=== PATIENT | female | born 1985 | race Caucasian/White ===

== ENCOUNTER 2018-12-01 01:12 | Emergency (ER) | payer OTHER ==
--- NOTE | ~2018-12-01 | EKG ---
[place], [place] ELECTROCARDIOGRAM REPORT NAME: VERONICA HENDRICKS UNIT #: [id number] ROOM: DOCTOR: EPIPHANY DRAFT REPORT BIRTHDATE: [birth year] [facility] Test Date: 2018-12-01 Test Time: 01:15:26 Pat Name: VERONICA HENDRICKS Department: ER Room: 4 Gender: F Extractor Filler: Radha Dowling : 1985 Requested By: JANNETH CUEVAS Order Number: [id number] Reading MD: Leroy Amador MD Measurements Intervals [place] Rate: 111 P: 37 IN: 150 QRS: 46 QRSD: 92 T: 6 QT: 306 QTc: 416 Interpretive Statements Sinus tachycardia Probable left atrial enlargement Baseline wander in lead(s) V6 Electronically Signed On 12-01-2018 18:17:59 PST by Leroy Amador MD CM:EKGRPT:ELECTROCARDIOGRAM REPORT [id number] JANNETH PEACOCK DRAFT REPORT JANNETH CUEVAS DO
--- NOTE | ~2018-12-01 | EKG ---
[place], [place] ELECTROCARDIOGRAM REPORT NAME: VERONICA HENDRICKS UNIT #: [id number] ROOM: DOCTOR: EPIPHANY DRAFT REPORT BIRTHDATE: [birth year] [facility] Test Date: 2018-12-01 Test Time: 04:08:58 Pat Name: VERONICA HENDRICKS Department: ED Room: Gender: F Assembler Trim: Radha Dowling : 1985 Requested By: JANNETH CUEVAS Order Number: [id number] Reading MD: Leroy Amador MD Measurements Intervals [place] Rate: 70 P: 21 [place]: 134 QRS: 57 QRSD: 85 T: 34 QT: 376 QTc: 406 Interpretive Statements Sinus rhythm Atrial premature complex Compared to earlier ECG this date PAC is now present Electronically Signed On 12-01-2018 18:19:20 PST by Leroy Amador MD CM:EKGRPT:ELECTROCARDIOGRAM REPORT [id number] JANNETH PEACOCK DRAFT REPORT JANNETH CUEVAS DO
[~2018-12-01 01:12] MED LIST: MACROBID100 M1 PO; PHENERGAN25 M1 PO
[2018-12-01 01:29] LABS: BASO # 0.1 10*3/uL (0.0-0.1); BASO % 0.6 % (0.0-1.0); EOS # 0.1 10*3/uL (0.0-0.4); EOS % 0.8 % (1.0-4.0); HEMATOCRIT 36.6 % (37.0-47.0); HEMOGLOBIN 12.3 g/dl (12.0-16.0); LYMPH # 3.2 10*3/uL (1.3-4.4); LYMPH % 35.3 % (27.0-41.0); MEAN CELL VOLUME 89.7 fl (81.0-99.0); MEAN CORPUSCULAR HGB 30.1 pg (27.0-31.0); MEAN CORPUSCULAR HGB CONC 33.6 g/dl (33.0-37.0); MEAN PLATELET VOLUME 10.6 fl (9.6-12.3); MONO # 0.5 10*3/uL (0.1-1.0); MONO % 5.9 % (3.0-9.0); NEUT # 5.2 10*3/uL (2.3-7.9); NEUT % 57.2 % (47.0-73.0); PLATELET COUNT AUTOMATED 262 10*3/uL (130-400); RED BLOOD COUNT 4.08 10*6/uL (4.10-5.10); RED CELL DISTRI WIDTH 12.1 % (0-14.5)
[2018-12-01 01:40] LABS: ACT PARTIAL THROMBO TIME 23.1 SECONDS (20.8-31.5)
[2018-12-01 01:47] LABS: ALBUMIN 3.4 gm/dl (3.1-4.5); ALKALINE PHOSPHATASE 66 U/L (45-117); BUN 16 mg/dl (7-24); CHLORIDE 107 mmol/L (98-107); CREATININE 0.69 mg/dL (0.55-1.02); SGOT/AST 9 IU/L (3-35); SGPT/ALT 26 U/L (12-78); SODIUM 140 mmol/L (136-145); TOTAL PROTEIN 6.9 gm/dL (6.4-8.2); TROPONIN I < 0.015 ng/ml (<0.045)
== END 2018-12-01 04:45 | disposition home or self-care (01) ==
LOC: ED 01:12
PROVIDERS: Emergency Medicine
DX: R07.89 Other chest pain (principal); F41.9 Anxiety disorder, unspecified; Z87.891 Personal history of nicotine dependence; Z79.2 Long term (current) use of antibiotics

== ENCOUNTER 2020-01-14 21:43 | Emergency (ER) | payer OTHER ==
[~2020-01-14] VITALS: Ht 165.1 cm; Wt 106.6 kg
[2020-01-14 22:38] LABS: BASO % 0.3 % (0.0-1.0); EOS # 0.1 10*3/uL (0.0-0.4); EOS % 0.4 % (1.0-4.0); HEMATOCRIT 35.3 % (37.0-47.0); LYMPH % 17.2 % (27.0-41.0); MEAN CELL VOLUME 89.4 fl (81.0-99.0); MEAN CORPUSCULAR HGB 30.4 pg (27.0-31.0); MEAN PLATELET VOLUME 11.1 fl (9.6-12.3); MONO # 0.7 10*3/uL (0.1-1.0); MONO % 6.1 % (3.0-9.0); NEUT % 75.8 % (47.0-73.0); PLATELET COUNT AUTOMATED 230 10*3/uL (130-400); RED BLOOD COUNT 3.95 10*6/uL (4.10-5.10); WHITE BLOOD COUNT 11.9 10*3/uL (4.8-10.8)
[2020-01-14 22:53] LABS: ALBUMIN 3.6 gm/dl (3.1-4.5); ALKALINE PHOSPHATASE 72 U/L (45-117); BUN 8 mg/dl (7-24); CHLORIDE 103 mmol/L (98-107); CREATININE 0.97 mg/dL (0.55-1.02); LIPASE 97 U/L (73-393); POTASSIUM 3.6 mmol/L (3.5-5.1); SGOT/AST 81 IU/L (3-35); SGPT/ALT 64 U/L (12-78); SODIUM 136 mmol/L (136-145); TOTAL PROTEIN 6.9 gm/dL (6.4-8.2)
[2020-01-14 23:19] LABS: BILIRUBIN NEGATIVE (NEGATIVE); BLOOD NEGATIVE (NEGATIVE); CLARITY CLEAR (CLEAR); COLOR YELLOW (YELLOW); GLUCOSE NEGATIVE (NEGATIVE); KETONE TRACE (NEGATIVE); PH 6.5 (5.0-9.0); SPECIFIC GRAVITY 1.015 (1.005-1.030)
[2020-01-14 23:20] LABS: LEUKO ESTERASE NEGATIVE (NEGATIVE); NITRITE NEGATIVE (NEGATIVE); UROBILINOGEN 0.2 E.U./dl (0.2-1.0)
[2020-01-14 23:23] LABS: BACTERIA 1+; MUCOUS TRACE; RBC 0-2 rbc/hpf (0-2)
== END 2020-01-15 00:59 | disposition home or self-care (01) ==
LOC: ED 21:43
PROVIDERS: Nurse Practitioner Family
DX: K44.9 Diaphragmatic hernia without obstruction or gangrene (principal); K21.9 Gastro-esophageal reflux disease without esophagitis; R10.11 Right upper quadrant pain; F17.200 Nicotine dependence, unspecified, uncomplicated; Z88.1 Allergy status to other antibiotic agents; Z79.2 Long term (current) use of antibiotics

== ENCOUNTER 2022-03-10 19:38 | Emergency (ER) | payer OTHER ==
[~2022-03-10] VITALS: Ht 167.6 cm; Wt 104.3 kg
[2022-03-10 20:38] LABS: BASO % 0.4 % (0.0-1.0); EOS % 0.3 % (1.0-4.0); HEMATOCRIT 36.9 % (37.0-47.0); LYMPH # 1.5 10*3/uL (1.3-4.4); LYMPH % 16.5 % (27.0-41.0); MEAN CELL VOLUME 88.3 fl (81.0-99.0); MEAN CORPUSCULAR HGB 30.4 pg (27.0-31.0); MEAN CORPUSCULAR HGB CONC 34.4 g/dl (33.0-37.0); MEAN PLATELET VOLUME 11.2 fl (9.6-12.3); MONO # 0.4 10*3/uL (0.1-1.0); MONO % 4.7 % (3.0-9.0); NEUT # 7.1 10*3/uL (2.3-7.9); PLATELET COUNT AUTOMATED 267 10*3/uL (130-400); RED BLOOD COUNT 4.18 10*6/uL (4.10-5.10); WHITE BLOOD COUNT 9.1 10*3/uL (4.8-10.8)
[2022-03-10 21:04] LABS: ALKALINE PHOSPHATASE 85 U/L (45-117); BUN 5 mg/dl (7-24); CHLORIDE 107 mmol/L (98-107); CREATININE 0.62 mg/dL (0.55-1.02); LIPASE 640 U/L (73-393); POTASSIUM 3.5 mmol/L (3.5-5.1); SGOT/AST 122 IU/L (3-35); SGPT/ALT 106 U/L (12-78); SODIUM 139 mmol/L (136-145); TOTAL PROTEIN 7.3 gm/dL (6.4-8.2)
[2022-03-10 21:49] LABS: BILIRUBIN Negative (Negative); BLOOD Negative (Negative); CLARITY Clear (Clear); COLOR Yellow (Yellow); GLUCOSE Negative (Negative); KETONE Negative (Negative); LEUKO ESTERASE Negative (Negative); NITRITE Negative (Negative); SPECIFIC GRAVITY <= 1.005 (1.001-1.030)
[2022-03-10 23:04] LABS: BACTERIA TRACE
== END 2022-03-11 01:11 | disposition left against medical advice (07) ==
LOC: ED 19:38
PROVIDERS: Emergency Medicine
DX: R10.13 Epigastric pain (principal); R11.2 Nausea with vomiting, unspecified; R74.01 Elevation of levels of liver transaminase levels; R74.8 Abnormal levels of other serum enzymes; Z88.1 Allergy status to other antibiotic agents; Z91.040 Latex allergy status; F17.200 Nicotine dependence, unspecified, uncomplicated